=== PATIENT | female | born 1960 | race Caucasian/White ===

== ENCOUNTER 2020-08-03 11:10 | Emergency (ER) | payer MEDICARE, MEDICAID ==
[~2020-08-03] VITALS: Ht 165.1 cm; Wt 67.0 kg
[2020-08-03 11:45] LABS: CHLORIDE 102 mEq/L (98-107)
[2020-08-03 11:48] LABS: INR 1.1; PROTHROMBIN TIME 11.4 sec (9.6-11.0)
[2020-08-03 11:49] LABS: ETHANOL BLOOD < 10 mg/dL
[2020-08-03 11:52] LABS: LDL CHOLESTEROL 106 mg/dL (5-100)
[2020-08-03 11:53] LABS: BASOPHILS % 0.6 % (0.0-2.0); EOSINOPHILS % 1.7 % (0.0-5.0); HEMATOCRIT. 38.2 % (36.0-48.0); HEMOGLOBIN. 12.8 g/dL (12.0-16.0); LYMPHOCYTES % 38.2 % (20.0-50.0); MEAN CORPUSCULAR HEMOGLOBIN 28.4 pg (28.0-32.0); MEAN PLATELET VOLUME 8.3 fl (7.4-10.4); MONOCYTES % 7.2 % (2.0-8.0); NEUTROPHILS % 52.3 % (40.0-76.0); PLATELET 209 x1000/uL (130-400); RED BLOOD CELL COUNT 4.49 mill/uL (4.2-5.4)
[2020-08-03] MEDS ORDERED: KETOROLAC 30MG/ML VIAL IV ONE (12:45)
[2020-08-03 13:29] LABS: CLARITY URINE CLEAR (CLEAR); COLOR URINE YELLOW (YELLOW); KETONES URINE NEGATIVE (NEGATIVE); LEUKOCYTE ESTERASE URINE 1+ (NEGATIVE); NITRITE URINE NEGATIVE (NEGATIVE); OCCULT BLOOD URINE NEGATIVE (NEGATIVE); PROTEIN URINE NEGATIVE (NEGATIVE); SPECIFIC GRAVITY URINE 1.023 (1.005-1.030); UROBILINOGEN URINE 0.2 E.U./dL (0.2-1.0)
[2020-08-03 13:56] LABS: *AMPHETAMINES SCREEN URINE NEGATIVE (NEGATIVE)
[2020-08-03 13:57] LABS: *BARBITURATES SCREEN URINE NEGATIVE (NEGATIVE); *COCAINE SCREEN URINE NEGATIVE (NEGATIVE); OPIATES URINE SCREEN NEGATIVE (NEGATIVE); PHENCYCLIDINE URINE SCREEN NEGATIVE (NEGATIVE)
[2020-08-03 13:58] LABS: CANNABINOID URINE SCREEN NEGATIVE (NEGATIVE)
[2020-08-03 13:59] LABS: *BENZODIAZEPINES SCREEN URINE NEGATIVE (NEGATIVE); METHADONE URINE SCREEN NEGATIVE (NEGATIVE)
[2020-08-03 15:08] VITALS: BP 157/87
== END 2020-08-03 16:43 | disposition left against medical advice (07) ==
LOC: ER 11:27 → EDBEDREQ 13:02 → EDBEDREQSVC 13:02 → EDBEDREQTM 13:02 → ER 16:43 → CANBEDREQ 17:06
DX: I63.9 Cerebral infarction, unspecified (principal); R10.13 Epigastric pain; I10 Essential (primary) hypertension; Z86.73 Personal history of transient ischemic attack (TIA), and cerebral infarction without residual deficits; Z88.5 Allergy status to narcotic agent
CPT/HCPCS: 36415; 70450; 70496; 70498; 71045; 76705; 80053; 80305; 80320; 81003; 82962; 83721; 84484; 85025; 85610; 93005; 96374; 99285; J1885; G0480